=== PATIENT | female | born 1960 | race African-American/Black ===

== ENCOUNTER → 2020-06-02 | Outpatient (CLI) | payer OTHER ==
[~2020-06-02] MED LIST: AMLO-186 PO; ASPI-630 PO; ATOR10TA60 PO; CARV25TA2 PO; CETI10TA16 PO; DULA1.5P SQ; FURO40TA4 PO; INSU100V37 SQ; METF500T16 PO; MULT-697 PO; POTA20TA4 PO; RIVA20TA2 PO; USTE90DI SQ
== END ==
LOC: LAB 06:20
PROVIDERS: ATTEND Internal Medicine Gastroenterology
DX: Z01.812 Encounter for preprocedural laboratory examination (principal); R12 Heartburn; Z20.822 Contact with and (suspected) exposure to COVID-19
CPT/HCPCS: U0003

== ENCOUNTER → 2020-06-06 | Day surgery (SDC) | payer OTHER ==
[~2020-06-06] MED LIST changes: +IV RINGERS,LACTATED 1000ML 1,000 ML IV SCH; +PROPOFOL 10 MG/ML (20ML) VIAL. IV ONE
--- NOTE | 2020-06-06 13:25 | PDOC4 ---
PROCEDURE Procedure EGD with biopsies/colonoscopy with biopsies Indication: chronic HB/History of polyps. Meds: per anesthesia. Findings: E--Healed reflux at 36cm. G--Pyloric polyp ~4mm. Striped antral erythem, biopsied. D--Normal to second portion. ANGELINA--normal. --'Scope advanced to cecum. Prep good, Mucosa normal. No diverticular disease. 4 mm polyp, upper rectum, biopsied off. Exam otherwise normal. Hieu. well. IMP: healed GERD pyloric polyp Antral erythema Rectal polyp REC: Resume home meds, diet. Await path. F/u with me in 2 weeks. NOMAN GTZ MD Jun 06, 2020 13:25
[2020-06-06 13:55] VITALS: BP 166/89
== END | disposition home or self-care (01) ==
LOC: ENDOS 11:57
PROVIDERS: ATTEND Internal Medicine Gastroenterology
DX: Z12.11 Encounter for screening for malignant neoplasm of colon (principal); K21.00 Gastro-esophageal reflux disease with esophagitis, without bleeding; K31.89 Other diseases of stomach and duodenum; K31.7 Polyp of stomach and duodenum; R12 Heartburn; K62.1 Rectal polyp; K63.89 Other specified diseases of intestine; Z86.010 Personal history of colon polyps; E78.00 Pure hypercholesterolemia, unspecified; I10 Essential (primary) hypertension; E11.9 Type 2 diabetes mellitus without complications; I48.91 Unspecified atrial fibrillation; E66.9 Obesity, unspecified; Z90.710 Acquired absence of both cervix and uterus; Z98.890 Other specified postprocedural states; Z79.899 Other long term (current) drug therapy; Z79.82 Long term (current) use of aspirin; Z79.4 Long term (current) use of insulin; Z88.8 Allergy status to other drugs, medicaments and biological substances
CPT/HCPCS: 43239; 45380; 82962; J2704